=== PATIENT | female | born 1980 | race Caucasian/White ===

== ENCOUNTER 2023-09-15 08:16 | Day surgery (SDC) | payer OTHER ==
[~2023-09-15] VITALS: Ht 175.3 cm; Wt 96.9 kg
[2023-09-15] MEDS ORDERED: CLARITIN 1010 MG/TAB PO (09:03)
[2023-09-15] MEDS ORDERED: ZOLOFT 100MG100 MG PO (09:04)
[2023-09-15] MEDS ORDERED: VITAMIN D250 MCG PO (09:04)
[2023-09-15 09:19] VITALS: BP 116/84; PULSE 70; TEMP 97.7
[2023-09-15 10:40] VITALS: BP 113/70; PULSE 62; TEMP 97.3
[2023-09-15 10:55] VITALS: BP 107/82; PULSE 68
[2023-09-15 11:10] VITALS: BP 107/72; PULSE 65
--- NOTE | 2023-09-15 13:07 | NUR ---
1040-PATIENT ARRIVED TO [facility] VIA CART, DROWSY ON ARRIVAL. PATIENT AMBULATED TO RECLINER WITH X2 ASSIST, WARM BLANKETS PROVIDED. VITAL SIGNS TAKEN, VSS. REPORT OBTAINED FROM JR COLNÓ. 1055-VSS, PATIENT TOLERATING PO INTAKE WITHOUT COMPLAINT. PATIENT'S FRIEND NOTIFIED THAT PROCEDURE COMPLETED. 1120-DR. RIGGS AT BEDSIDE TO DISCUSS PROCEDURE. DISCHARGE INSTRUCTIONS REVIEWED, QUESTIONS INVITED. 1124-IV CATHETER DISCONTINUED, TIP INTACT. PRESSURE HELD AND BANDAGE APPLIED. PATIENT CHANGED CLOTHING INDEPENDENTLY. 1130-PATIENT DISCHARGED HOME TO [facility] VIA WHEELCHAIR, ACCOMPANIED BY FRIEND. ALL BELONGINGS AND DC PAPERWORK SENT WITH PT.
== END 2023-09-15 11:30 | disposition home or self-care (01) ==
LOC: SDCO 08:16
DX: R19.4 Change in bowel habit (principal); R19.7 Diarrhea, unspecified; K64.0 First degree hemorrhoids; R15.2 Fecal urgency; R14.0 Abdominal distension (gaseous)
CPT/HCPCS: J2704; J7120